=== PATIENT | female | born 1985 | race Caucasian/White ===

== ENCOUNTER 2024-10-04 10:15 | Outpatient (CLI) | payer OTHER, SELFPAY ==
[2024-10-04 18:50] LABS: Basophils # 0.1 K/mm3 (0-0.2); Basophils % 0.6 % (0.1-2.0); Eosinophils # 0.2 Kmm3 (0.0-0.4); Eosinophils % 1.8 % (0.1-12.0); Hematocrit 44.6 % (37.0-47.0); Hemoglobin 14.6 g/dL (12.2-16.2); Immature Granulocytes # 0.02 10^3uL; Immature Granulocytes % 0.2 %; Lymphocytes # 3.8 K/mm3 (0.7-4.5); Lymphocytes % 36.2 % (10-50); Mean Corpuscular HGB Conc 32.7 g/dL (31.8-35.4); Mean Corpuscular Hemoglobin 32.5 pg (27.0-31.2); Mean Corpuscular Volume 99.3 fl (81-99); Mean Platelet Volume 10.5 fl (7.4-10.4); Monocytes # 0.8 K/mm3 (0.1-1.0); Monocytes % 7.6 % (1.7-9.3); Neutrophils # 5.6 K/mm3 (1.8-7.8); Neutrophils % 53.6 % (37.0-80.0); Nucleated Red Blood Cells # 0 10^3/uL; Nucleated Red Blood Cells % 0 %; Platelet Count 247 K/mm3 (142-424); Red Blood Count 4.49 M/mm3 (4.20-5.40); Red Cell Distribution Width 13.2 % (11.5-17.5); Red Cell Distribution Width-SD 47.2 fL; White Blood Count 10.5 K/mm3 (4.8-10.8)
[2024-10-04 19:00] LABS: Hemoglobin A1C 5.4 % (4.0-6.0)
[2024-10-04 19:25] LABS: Erythrocyte Sedimentation Rate 13 mm/hr (0-20)
[2024-10-04 19:48] LABS: Alanine Aminotransferase 26 U/L (12-78); Albumin Level 4.3 g/dl (3.5-5.0); Albumin/Globulin Ratio 1.7 (1.1-1.8); Alkaline Phosphatase 88 U/L (38-126); Anion Gap 12.4 mEq/L (5-15); Aspartate Amino Transferase 20 U/L (14-36); Bilirubin,Total 0.3 mg/dl (0.2-1.3); Blood Urea Nitrogen 17 mg/dl (7-17); Calcium 9.3 mg/dl (8.4-10.2); Carbon Dioxide 24 mmol/L (22.0-30.0); Chloride 108 mmol/L (98-107); Chol/HDL Ratio 5.8 (1-3.5); Cholesterol 174 mg/dl (140-200); Estimated Glomerular Filt Rate 93 ml/min (>60); GFR (African American) 112 ML/MIN (>60); Globulin 2.6 g/dL (1.3-3.2); Glucose 115 mg/dl (74-100); HDL Cholesterol 30 mg/dl (40-60); Potassium 4.4 mmoL/L (3.5-5.1); Sodium 140 mmol/L (136-145); Total Protein,Serum 6.9 g/dl (6.3-8.2); Triglycerides 212 mg/dl (30-150); VLDL Cholesterol 42 mg/dL (0-40)
[2024-10-04 19:59] LABS: C-Reactive Protein 7.5 mg/L (0-4); Direct LDL Cholesterol 116.05 mg/dL (100-129)
[2024-10-04 20:24] LABS: Thyroid Stimulating Hormone 1.43 uIU/mL (0.465-4.68)
[2024-10-04 20:30] LABS: HIV Combo NEGATIVE (Negative)
[2024-10-04 20:37] LABS: Hepatitis C Ab Qual. W/ RFX NEGATIVE (Negative)
[2024-10-06 05:13] LABS: Hepatitis B Surface Antigen Negative (Negative)
== END 2024-10-04 23:59 | disposition home or self-care (01) ==
LOC: LAB.DROPOF 10-05 13:11
PROVIDERS: PCP Family Medicine; Visit Provider Family Medicine
DX: E87.5 Hyperkalemia (principal); M79.7 Fibromyalgia; Z83.3 Family history of diabetes mellitus
CPT/HCPCS: 80053; 80061; 83036; 84443; 85025; 85651; 86140; 86803; 87340; 87389

== ENCOUNTER 2024-11-01 09:32 | Outpatient (CLI) | payer OTHER, SELFPAY ==
[2024-11-01 22:30] LABS: Thyroid Stimulating Hormone 1.00 uIU/mL (0.465-4.68)
[2024-11-01 22:42] LABS: Hemoglobin A1C 6.6 % (4.0-6.0)
[2024-11-03 08:17] LABS: FSH 5.9 mIU/mL (.); Testosterone,Total 127 ng/dL (8-60)
--- OUTSIDE RECORDS SUMMARY | 2024-11-06 09:39 | XMS_ITS | Data Portability ---
Author Organization [facility] Address [address] [place] [address] Assessment No assessment recorded. Plan of Treatment Reminders Order Date Submit Date Provider Last Modified By Organization Details Last Modified Time Details Appointments None recorded. Lab lipid panel, serum 2023 [place] [facility], [address], [place] [address], [place], [address], 4 05:36:42 CMP, serum or plasma 2023 [place] [facility], [address], [place] [address], [place], [address], 4 05:36:41 TSH + free T4, serum 2023 [place] [facility], [address], [place] [address], [place], [address], 4 05:36:40 CBC w/ auto diff 2023 [place] [facility], [address], [place] [address], [place], [address], 4 05:36:40 drug screen, urine 2023 [facility], [address] [place], [address], 4 12:26:50 Referral None recorded. Procedures None recorded. Surgeries None recorded. Imaging US, breast, unilateral 2023 024 [facility], [address] [place], [address], 5 16:12:22 Medication Orders pregabalin 150 mg capsule [address], [address], 5 08:40:28 omeprazole 40 mg capsule,del ayed release [address], [address], 5 09:07:16 pregabalin 150 mg capsule [address], [address], 5 15:01:39 citalopram 10 mg tablet [address], [address], 5 15:01:39 tramadol 50 mg tablet [address], [address], 5 15:01:39 pregabalin 150 mg capsule [address], [address], 4 10:15:51 tramadol 50 mg tablet [address], [address], 4 10:15:51 fenofibrate 160 mg tablet [address], [place], [address], 4 10:26:29 pregabalin 150 mg capsule [address], [place], [address], 4 10:26:32 citalopram 10 mg tablet [address], [place], [address], 4 10:26:30 metoprolol succinate ER 25 mg tablet,exte nded release 24 hr [address], [place], [address], 4 10:26:29 Ubrelvy 100 mg tablet [address], [place], [address], 4 10:26:30 tramadol 50 mg tablet [address], [place], [address], 4 13:42:21 Patient TargetsNo targets recorded. Patient Instructions Encounter Date Encounter Id Patient Instructions Last Modified By Organization Details Last Modified Time 03/10/2024 [id number] body mass index: care instructions Not available 03/16/2024 07:55:10 learning about healthy weight [email or web address] Not available 03/16/2024 07:55:10 08/04/2024 [id number] body mass index: care instructions Not available 08/04/2024 08:40:26 learning about healthy weight Not available 08/04/2024 08:40:26 Patient is due for adult preventative visit and did advise patient to make a follow-up appointment in 3 months for a well visit. Not available 08/04/2024 09:06:21 Reason for Referral None Reported. Results Created Date Observation Date Name Description Value Unit Range Abnormal Flag Note LastModifiedBy Organization Detail LastModifiedTime 03/17/20 24 03/17/2024 drug scree n, urine THC negati ve Not Available [address] [place], [address], 03/17/2024 10:29:46 03/17/20 24 03/17/2024 drug scree n, urine TCA negati ve Not Available [address] [place], [address], 03/17/2024 10:29:46 03/17/20 24 03/17/2024 drug scree n, urine BAR negati ve Not Available [address] [place], [address], 03/17/2024 10:29:46 03/17/20 24 03/17/2024 drug scree n, urine BZO negati ve Not Available [address] [place], [address], 03/17/2024 10:29:46 03/17/20 24 03/17/2024 drug scree n, urine MTD negati ve Not Available [address] [place], [address], 03/17/2024 10:29:46 03/17/20 24 03/17/2024 drug scree n, urine AMP negati ve Not Available [address] [place], [address], 03/17/2024 10:29:46 03/17/20 24 03/17/2024 drug scree n, urine MOP negati ve Not Available [address] [place], [address], 03/17/2024 10:29:46 03/17/20 24 03/17/2024 drug scree n, urine OXY negati ve Not Available [address] [place], [address], 03/17/2024 10:29:46 03/17/20 24 03/17/2024 drug scree n, urine MDMA negati ve Not Available [address] [place], [address], 03/17/2024 10:29:46 03/17/20 24 03/17/2024 drug scree n, urine ASHLIE negati ve Not Available [address] [place], [address], 03/17/2024 10:29:46 03/17/20 24 03/17/2024 drug scree n, urine PCP negati ve Not Available [address] [place], [address], 03/17/2024 10:29:46 03/17/20 24 03/17/2024 drug scree n, urine MET negati ve Not Available [address] [place], [address], 03/17/2024 10:29:46 03/27/20 24 03/28/2024 TSH+F REE T4 TSH 1.690 uIU/m L 0.450- 4.500 normal Not Available [facility] ([facility]) [address] [place], [address], 03/28/2024 05:36:40 03/27/20 24 03/28/2024 TSH+F REE T4 T4,free(dire ct) 1.11 NG/dL 0.82-1 .77 normal Not Available [facility] ([facility]) [address] [place], [address], 03/28/2024 05:36:40 03/27/20 24 03/28/2024 CBC WITH DIFFE RENTI AL/PL ATELE T WBC 10.9 x10e3 /uL 3.4-10 .8 above high normal Eff ectiv e Decem adelfo 2023 [place] [id number] 5 WBC will be made* * non-o rdera ble as a stand -hua e order code. Not Available [facility] ([facility]) [address] [place], [address], 03/28/2024 05:36:40 03/27/20 24 03/28/2024 CBC WITH DIFFE RENTI AL/PL ATELE T RBC 4.75 x10e6 /uL 3.77-5 .28 normal Not Available [facility] ([facility]) [address] [place], [address], 03/28/2024 05:36:40 03/27/20 24 03/28/2024 CBC WITH DIFFE RENTI AL/PL ATELE T hemoglobin 15.6 g/dL 11.1-1 5.9 normal Not Available [facility] ([facility]) [address] [place], [address], 03/28/2024 05:36:40 03/27/20 24 03/28/2024 CBC WITH DIFFE RENTI AL/PL ATELE T hematocrit 46.6 % 34.0-4 6.6 normal Not Available [facility] ([facility]) [address] [place], [address], 03/28/2024 05:36:40 03/27/20 24 03/28/2024 CBC WITH DIFFE RENTI AL/PL ATELE T MCV 98 fL 79-97 above high normal Not Available [facility] ([facility]) [address] [facility], [place], [address], 03/28/2024 05:36:40 03/27/2003/28/2024 CBC WITH DIFFE RENTI AL/PL ATELE T MCH 32.8 pg 26.6-3 3.0 normal Not Available [facility] ([facility]) [address] [place], [address], 03/28/2024 05:36:40 03/27/20 24 03/28/2024 CBC WITH DIFFE RENTI AL/PL ATELE T MCHC 33.5 g/dL 31.5-3 5.7 normal Not Available [facility] ([facility]) [address] [facility], [place], [address], 03/28/2024 05:36:40 03/27/20 24 03/28/2024 CBC WITH DIFFE RENTI AL/PL ATELE T RDW 11.8 % 11.7-1 5.4 Not Available [facility] ([facility]) [address] [place], [address], 03/28/2024 05:36:40 03/27/20 24 03/28/2024 CBC WITH DIFFE RENTI AL/PL ATELE T platelets 238 x10e3 /uL 150-45 0 normal Not Available [facility] ([facility]) [address] [place], [address], 03/28/2024 05:36:40 03/27/20 24 03/28/2024 CBC WITH DIFFE RENTI AL/PL ATELE T neutrophils 55 % not estab. normal Not Available [facility] ([facility]) [address] [place], [address], 03/28/2024 05:36:40 03/27/20 24 03/28/2024 CBC WITH DIFFE RENTI AL/PL ATELE T lymphs 35 % not estab. normal Not Available [facility] ([facility]) [address] [place], [address], 03/28/2024 05:36:40 03/27/20 24 03/28/2024 CBC WITH DIFFE RENTI AL/PL ATELE T monocytes 6 % not estab. normal Not Available [facility] ([facility]) [address] [place], [address], 03/28/2024 05:36:40 03/27/20 24 03/28/2024 CBC WITH DIFFE RENTI AL/PL ATELE T eos 2 % not estab. normal Not Available [facility] ([facility]) [address] [facility], [place], [address], 03/28/2024 05:36:40 03/27/20 24 03/28/2024 CBC WITH DIFFE RENTI AL/PL ATELE T basos 1 % not estab. normal Not Available [facility] ([facility]) [address] [facility], [place], [address], 03/28/2024 05:36:40 03/27/20 24 03/28/2024 CBC WITH DIFFE RENTI AL/PL ATELE T immature cells WRAPPER DIPPER Not Available [facility] ([facility]) [address] [place], [address], 03/28/2024 05:36:40 03/27/20 24 03/28/2024 CBC WITH DIFFE RENTI AL/PL ATELE T neutrophils (absolute) 6.1 x10e3 /uL 1.4-7. 0 normal Not Available [facility] ([facility]) [address] [place], [address], 03/28/2024 05:36:40 03/27/20 24 03/28/2024 CBC WITH DIFFE RENTI AL/PL ATELE T lymphs (absolute) 3.8 x10e3 /uL 0.7-3. 1 above high normal Not Available [facility] ([facility]) [address] [place], [address], 03/28/2024 05:36:40 03/27/20 24 03/28/2024 CBC WITH DIFFE RENTI AL/PL ATELE T monocytes(ab solute) 0.6 x10e3 /uL 0.1-0. 9 normal Not Available [facility] ([facility]) [address] [place], [address], 03/28/2024 05:36:40 03/27/20 24 03/28/2024 CBC WITH DIFFE RENTI AL/PL ATELE T eos (absolute) 0.2 x10e3 /uL 0.0-0. 4 normal Not Available [facility] ([facility]) [address] [place], [address], 03/28/2024 05:36:40 03/27/20 24 03/28/2024 CBC WITH DIFFE RENTI AL/PL ATELE T baso (absolute) 0.1 x10e3 /uL 0.0-0. 2 normal Not Available [facility] ([facility]) [address] [place], [address], 03/28/2024 05:36:40 03/27/20 24 03/28/2024 CBC WITH DIFFE RENTI AL/PL ATELE T immature granulocytes 1 % not estab. Not Available [facility] ([facility]) [address] [place], [address], 03/28/2024 05:36:40 03/27/20 24 03/28/2024 CBC WITH DIFFE RENTI AL/PL ATELE T immature grans (abs) 0.1 x10e3 /uL 0.0-0. 1 Not Available [facility] ([facility]) [address] [place], [address], 03/28/2024 05:36:40 03/27/20 24 03/28/2024 CBC WITH DIFFE RENTI AL/PL ATELE T NRBC WRAPPER DIPPER Not Available [facility] ([facility]) [address], [place], [address], 03/28/2024 05:36:40 03/27/20 24 03/28/2024 CBC WITH DIFFE RENTI AL/PL ATELE T hematology comments: WRAPPER DIPPER Not Available [facility] ([facility]) [address] [facility], [place], [address], 03/28/2024 05:36:40 03/27/20 24 03/28/2024 COMP. METAB OLIC PANEL (14) glucose 88 mg/dL 70-99 normal Not Available [facility] ([facility]) [address] [facility], [place], [address], 03/28/2024 05:36:41 03/27/20 24 03/28/2024 COMP. METAB OLIC PANEL (14) BUN 19 mg/dL 6-20 normal Not Available [facility] ([facility]) [address] [facility], [place], [address], 03/28/2024 05:36:41 03/27/20 24 03/28/2024 COMP. METAB OLIC PANEL (14) creatinine 0.87 mg/dL 0.57-1 .00 normal Not Available [facility] ([facility]) [address] [facility], [place], [address], 03/28/2024 05:36:41 03/27/20 24 03/28/2024 COMP. METAB OLIC PANEL (14) eGFR 87 mL/mi n/1.7 3 >59 normal Not Available [facility] ([facility]) [address] [facility], [place], [address], 03/28/2024 05:36:41 03/27/20 24 03/28/2024 COMP. METAB OLIC PANEL (14) BUN/creatini ne ratio 22 9-23 normal Not Available [facility] ([facility]) [address] [facility] [place], [address], 03/28/2024 05:36:41 03/27/20 24 03/28/2024 COMP. METAB OLIC PANEL (14) sodium 138 mmol/ L 134-14 4 normal Not Available [facility] ([facility]) [address] [facility] [place], [address], 03/28/2024 05:36:41 03/27/20 24 03/28/2024 COMP. METAB OLIC PANEL (14) potassium 4.6 mmol/ L 3.5-5. 2 normal Not Available [facility] ([facility]) [address] [facility], [address], 03/28/2024 05:36:41 03/27/20 24 03/28/2024 COMP. METAB OLIC PANEL (14) chloride 104 mmol/ L 96-106 normal Not Available [facility] ([facility]) [address] [facility], [address], 03/28/2024 05:36:41 03/27/20 24 03/28/2024 COMP. METAB OLIC PANEL (14) carbon dioxide, total 20 mmol/ L 20-29 normal Not Available [facility] ([facility]) [address] [place], [address], 03/28/2024 05:36:41 03/27/20 24 03/28/2024 COMP. METAB OLIC PANEL (14) calcium 9.1 mg/dL 8.7-10 .2 normal Not Available [facility] ([facility]) [address] [place], [address], 03/28/2024 05:36:41 03/27/20 24 03/28/2024 COMP. METAB OLIC PANEL (14) protein, total 7.0 g/dL 6.0-8. 5 normal Not Available [facility] ([facility]) [address] [facility], [address], 03/28/2024 05:36:41 03/27/20 24 03/28/2024 COMP. METAB OLIC PANEL (14) albumin 4.6 g/dL 3.9-4. 9 normal Not Available [facility] ([facility]) [address] [facility] [place], [address], 03/28/2024 05:36:41 03/27/20 24 03/28/2024 COMP. METAB OLIC PANEL (14) globulin, total 2.4 g/dL 1.5-4. 5 Not Available [facility] ([facility]) [address] [facility] [place], [address], 03/28/2024 05:36:41 03/27/20 24 03/28/2024 COMP. METAB OLIC PANEL (14) bilirubin, total 0.2 mg/dL 0.0-1. 2 normal Not Available [facility] ([facility]) [address] [facility] [place], [address], 03/28/2024 05:36:41 03/27/20 24 03/28/2024 COMP. METAB OLIC PANEL (14) alkaline phosphatase 77 IU/L 44-121 normal Not Available [facility] ([facility]) [address] [place], [address], 03/28/2024 05:36:41 03/27/20 24 03/28/2024 COMP. METAB OLIC PANEL (14) AST (SGOT) 11 IU/L 0-40 normal Not Available [facility] ([facility]) [address] [facility] [place], [address], 03/28/2024 05:36:41 03/27/20 24 03/28/2024 COMP. METAB OLIC PANEL (14) ALT (SGPT) 12 IU/L 0-32 normal Not Available [facility] ([facility]) [address] [place], [address], 03/28/2024 05:36:41 03/27/20 24 03/28/2024 LIPID PANEL cholesterol, total 177 mg/dL 100-19 9 normal Not Available [facility] ([facility]) [address] [place], [address], 03/28/2024 05:36:42 03/27/20 24 03/28/2024 LIPID PANEL triglyceride s 134 mg/dL 0-149 normal Not Available [facility] ([facility]) [address] [place], [address], 03/28/2024 05:36:42 03/27/2003/28/2024 LIPID PANEL HDL cholesterol 34 mg/dL >39 below low normal Not Available [facility] ([facility]) [address] [place], [address], 03/28/2024 05:36:42 03/27/20 24 03/28/2024 LIPID PANEL VLDL cholesterol noe 24 mg/dL 5-40 Not Available [facility] ([facility]) [address] [place], [address], 03/28/2024 05:36:42 03/27/20 24 03/28/2024 LIPID PANEL LDL chol calc ([facility] [place]) 119 mg/dL 0-99 above high normal Not Available [facility] ([facility]) [address] [place], [address], 03/28/2024 05:36:42 03/27/20 24 03/28/2024 LIPID PANEL LDL calc comment: WRAPPER DIPPER Not Available [facility] ([facility]) [address] [place], [address], 03/28/2024 05:36:42 08/09/19 25 08/05/2024 MAMMO , diagn ostic , digit al, bilat eral No observ ation record ed. [facility] [address] [place], [address], 08/15/2024 08:18:59 08/09/19 25 08/05/2024 US, ruthy riggs No observ ation record ed. [email or web address] [facility] [address] [facility] [place], [address], 08/11/2024 14:02:05 Result Notes None recorded. Problems Name Problem SNOMED Code Status Onset Date Resolution Date Notes Provider Name and Address Organization Details Recorded Time Hypertriglycer idemia 511224504 Active 2023 Chris Smalls MD [address], [place], [address], [place] - [facility] 4 10:21:42 Migraine with aura 9918579 Active 2023 Chris Smalls MD [address], [place], [address], [place] [facility] 4 10:21:45 Fibromyalgia 966853460 Active 2023 Chris Smalls MD [address], [place], [address], [place] [facility] 4 10:21:46 Generalized anxiety disorder 01536585 Active 2024 Tomer Yang DO [address], [place], [address], [place] [facility] 5 09:00:22 Pain of multiple joints 45263415 Active 2024 Tomer Yang DO [address], [place], [address], [place] [facility] 5 09:00:44 Gastroesophage al reflux disease without esophagitis 049123802 Active 2024 Tomer Yang DO [address], [place], [address], [place] [facility] 5 09:04:58 Problem Notes None recorded. Procedures Surgical History Date Name Laterality Status Provider Name and Address Organization Details Recorded Time Ankle arthroscopy/ surgery completed Mariaelena Last [place] - [facility] 03/10/2024 13:08:40 Imaging Results None recorded. Procedure Notes None recorded. Medical Equipment None Reported. Allergies Allergen ID Allergen Name Allergen Category Reaction Reaction Severity Criticality Documentation Date Start Date Code Code System Note Provider Name and Address Organization Details Recorded Time 386809 Augmentin medicatio n hives moderate Not available 03/10/2024 05907 2 RxNorm Mariaelena Oreilly-Orpedro ivan null, [place] - [facility] 4 13:06:22 Medications Name Sig Start Date Stop Date Status Note LastModified by Organization Details LastModified Time Prescription - Prior Authorization Request active Not Available Not Available Not Available citalopram 10 mg tablet TAKE ONE (1) TABLET EVERY DAY BY ORAL ROUTE AFTER A MEAL active Not Available Not Available No t Available Nystop 100,000 unit/gram topical powder APPLY TO THE AFFECTED AREA(S) BY TOPICAL ROUTE TWO (2) TIMES PER DAY active Not Available Not Available No t Available rizatriptan 10 mg tablet TAKE ONE (1) TABLET BY MOUTH AT ONSET OF MIGRAINE; MAY REPEAT ONCE AFTER AT LEAST TWO (2) HOURS active Not Available Not Available No t Available omeprazole 40 mg capsule,delaye d release TAKE ONE (1) CAPSULE TWICE A DAY BY ORAL ROUTE FOR 90 DAYS. active Not Available Not Available No t Available tramadol 50 mg tablet TAKE ONE (1) TABLET THREE (3) TIMES A DAY BY ORAL ROUTE AFTER MEAL(S) FOR 30 DAYS. active Not Available Not Available No t Available metoprolol succinate ER 25 mg tablet,extende d release 24 hr TAKE 1 TABLET BY MOUTH EVERY DAY AFTER A MEAL active Not Available Not Available No t Available fenofibrate 160 mg tablet TAKE ONE (1) TABLET EVERY DAY BY ORAL ROUTE FOR 90 DAYS. active Not Available Not Available No t Available pregabalin 150 mg capsule TAKE ONE (1) CAPSULE TWICE A DAY BY ORAL ROUTE AFTER MEAL(S) FOR 30 DAYS. active Not Available Not Available No t Available Ubrelvy 100 mg tablet active Not Available Not Available Not Available Qulipta 60 mg tablet active Not Available Not Available Not Available Vitals Date Recorded Body weight Heart rate Oxygen saturation Oxygen saturation in Arterial blood by Pulse oximetry Respiratory rate Systolic And Diastolic Provider Name and Address Organization Details Last Updated DateTime 5 295942. 72 g 71 /min 98 % 98 % 18 /min 128/80 mm[Hg] Jaclyn Warren [place] - [facility] 5 14:37:22 Date Recorded Body height Body mass index (BMI) Body weight Body temperature Heart rate Oxygen saturation Oxygen saturation in Arterial blood by Pulse oximetry Respiratory rate Systolic And Diastolic Provider Name and Address Organization Details Last Updated DateTime 5 156.21 cm 46.8 kg/m2 674295. 48 g 98 [degF] 88 /min 97 % 97 % 18 /min 118/74 mm[Hg] Radha Tolentino [place] - [facility] 5 08:06:53 Date Recorded Body weight Body mass index (BMI) Body height Heart rate Oxygen saturation Oxygen saturation in Arterial blood by Pulse oximetry Body temperature Respiratory rate Systolic And Diastolic Provider Name and Address Organization Details Last Updated DateTime 4 497896. 13 g 45.5 kg/m2 156.21 cm 96 /min 98 % 98 % 98.4 [degF] 18 /min 118/80 mm[Hg] Mariaelena ivan [place] - [facility] 4 13:05:52 Date Recorded Body height Body mass index (BMI) Body weight Heart rate Body temperature Oxygen saturation Oxygen saturation in Arterial blood by Pulse oximetry Respiratory rate Systolic And Diastolic Provider Name and Address Organization Details Last Updated DateTime 4 156.21 cm 45.9 kg/m2 602215. 32 g 85 /min 98.2 [degF] 98 % 98 % 18 /min 110/72 mm[Hg] Mariaelena ivan [place] - [facility] 4 09:50:22 Date Recorded Body height Body mass index (BMI) Body weight Heart rate Body temperature Oxygen saturation Oxygen saturation in Arterial blood by Pulse oximetry Respiratory rate Systolic And Diastolic Provider Name and Address Organization Details Last Updated DateTime 4 156.21 cm 46.3 kg/m2 884441. 5 g 92 /min 98.4 [degF] 98 % 98 % 18 /min 112/78 mm[Hg] Mariaelena Madden [facility] - [facility] 4 09:44:16 Social History Question Answer Notes LastModified by Organizat ion Details LastModified Time Tobacco Smoking Status Current Every Day Smoker [facility] [place] [facility] 03/10/2024 13:07:35 What Is Your Level Of Caffeine Consumption? Moderate Information not available 03/10/2024 What Was The Date Of Your Most Recent Tobacco Screening? 08/04/2024 Information not available 08/04/2024 What Is Your Current Pack Years? 10-19packyear s [email or web address] Information not available 08/04/2024 What Is Your Relationship Status? Information not available 03/10/2024 At What Age Did You Start Smoking Tobacco? 18 [email or web address] Information not available 08/04/2024 How Much Tobacco Do You Smoke? 0.5 PPD Information not available 03/10/2024 Has Tobacco Cessation Counseling Been Provided? Yes Information not available 03/10/2024 On What Date Was Tobacco Cessation Counseling Provided? 08/04/2024 [email or web address] Information not available 08/04/2024 How Many Years Have You Smoked Tobacco? 21 [email or web address] Information not available 08/04/2024 Do You Have Any Future Plans To Get ? No, I Don't Want To Become Information not available 03/10/2024 Sex: Female Functional Status Question Answer Note LastModified by Organizat ion Details LastModified Time Do you use any illicit or recreational drugs? No Information not available 03/10/2024 Do you or have you ever used any other forms of tobacco or nicotine? No Information not available 03/10/2024 What is your level of alcohol consumption? None [email or web address] Information not available 08/04/2024 What is your status? Not Information no t available 03/10/2024 Mental Status None recorded. Family History Relationship Description Onset Age of this Age Resolved Age Notes LastModified by Organization Details LastModified Time Father No current problems or disability [email or web address] Not available 05/16 14:29:06 Mother No current problems or disability [email or web address] Not available 05/16 14:29:06 Medical History Condition Response Migraine Headaches Y Fibromyalgia Y Hypertriglyceridemia Y Gynecological History Statement/Question Response Menses Monthly N Obstetrics History GPAL:G 0 P 0 0 0 0 Past Encounters Encounter ID Performer Location Encounter Start Date Encounter Closed Date Diagnosis/Indication Diagnosis SNOMED-CT Code Diagnosis ICD10 Code Diagnosis Note [id number] Chris Smalls MD [address] [place] [address] 03/10/2024 12:39:12 03/10/2024 13:45:51 Pain of multiple joints 35150467 M25.50 Body mass index 40+ - severely obese 449668313 Z68.42 Morbid obesity 424852404 E66.01 [id number] Chris Smalls MD [address] [place] [address] 03/17/2024 09:29:50 03/17/2024 10:33:04 Hypertriglyceridemia 643234308 E78.1 Migraine with aura 16343 06 G43.109 Fibromyalgia 481072065 M 79.7 Generalize d anxiety disorder [id number] F41.1 Long-term drug therapy [id number] Z79.950 [id number] Chris Smalls MD [address] [place] [address] 04/14/2024 09:37:00 04/14/2024 10:17:29 Fibromyalgia [id number] M79.7 Pain of mu ltiple joints 40405636 M25.50 Mass of right breast 384 [id number] N63.10 [id number] Chris Smalls MD [address] [place] [address] 05/16/2024 14:15:54 05/16/2024 15:03:49 Fibromyalgia 199923672 M79.7 Hypertriglyceridemia 302 285704 E78.1 Migraine with aura 39143 06 G43.109 Pain of mu ltiple joints 29982106 M25.50 Generalize d anxiety disorder 11039504 F41.1 [id number] Tomer Yang DO [address] [place] [address] 08/04/2024 07:57:35 08/04/2024 08:45:25 Fibromyalgia 656990468 M79.7 Fibromyalg ia. Patient has had a failure of amitriptyl ine, allergic to gabapentin , and a failure of Cymbalta per her records. Patient will need to sign a records request for workup from her neurologis t for ongoing assessment . Patient will be given a renewal of her Lyrica at this point until we can validate her other failures. Hypertriglyceridemia 302 844256 E78.1 Hypertrigl yceridemia . Patient will continue the fenofibrat e at this point and at follow-up appointmen t will repeat labs. Last triglyceri rosibel were good so a trial off the medication may be indicated to see if her triglyceri rosibel return to greater than 500. Migraine with aura 54181 06 G43.109 Migraine headaches. Uncontroll ed. Patient will continue the metoprolol ER as written and the rizatripta n as needed. Due to frequency of headaches, greater than 4/month, patient will be trialed on Qulipta to see if that helps with her headaches. Patient has had a failure of sumatripta n hand, Botox injections , and topiramate . Body mass index 40+ - severely obese [id number] E66.01 bmi--46.7 Morbid obesity 561042690 E66.01 Generalize d anxiety disorder 61212245 F41.1 Generalize d anxiety disorder. Controlled . Patient will continue the citalopram as currently prescribed . Pain of mu ltiple joints 63841910 M25.50 Joint pain. Patient was advised that tramadol will not be renewed. Patient was agreeable to not renewing the medication . Gastroesop hageal reflux disease without esophagitis 113726516 K21.9 Gastroesop hageal reflux disease without esophagiti s. Controlled . Patient will continue the omeprazole twice daily. Did advise patient to take once prior to breakfast and once prior to dinner about 30 minutes prior to those meals. Patient will need magnesium level at follow-up appointmen t. Health Concerns Section Related Observation LastModified by Organization Detai ls LastModified Time None Recorded Concern Status LastModified by Organization Details LastModified Time None Recorded Advance Directives Directive None Recorded Payers Insurance Date Sequence Insurance Name Policy Number Policy Dum[place] Covered Member ID Dumont Member ID Guarantor Name 04/13/2024 1 [employer] Fernando Uriarte [id number] Jolynn Uriarte 04/13/2024 1 [employer] [id number] Fernando Uriarte [id number] Jolynn Uriarte 04/13/2024 2 [facility] [employer] [facility] Fernando Uriarte [id number] Jolynn Uriarte Notes Date Note Type Note Provider Name and Address Organization Details Recorded Time 03/10/2024 text/html Pt presents as a new patient with no forms completed, no prior records. Pt states her main concerning today is chronic, polyarticular pain related to likely OA. Pt describes polyarticular pain as dull and grinding, without radiation, constant with a waxing and waning course, worst in low back and knees, associated swelling with knees, relieved by rest, NSAIDs, warmth. Denies recent imaging.Pt's BMI today is 45.5. Extensive discussion with Pt about the effects of weight on overall health, ana laura joint pain. Discussed basic nutrition facts, meal planning and how to design a graduated exercise plan to accommodate joint pain. Pt understanding and agreeable. Chris Smalls MD [address], [place], [address], [place] - [facility] 03/16/2024 07:55:25 03/17/2024 text/html Pt presents with prior records still not arrived but does bring prior meds.Pt with hx of CLBP and fibromyalgia. Pt s chronic low back currently stable with good control using current regimen. Pt reminded on good lifting technique, use of back brace and work/rest intervals.Pt describes polyarticular pain as dull and grinding, without radiation, constant with a waxing and waning course, worst in low back and knees, associated swelling with knees, relieved by rest, NSAIDs, warmth. Denies recent imaging. Fibromyalgia-Pt states no recent flares, does endorse sharp pain at paraspinal trigger points. Not actively treated at this time.Pt states long hx of migraine HAs. Have been well controlled with tryptans in the past, did not respond well to Fioricet. Metoprolol for daily control, will supply sample of Ubrelvy for arbortificient.Pt with hx of depression/anxiety; denies any significant mood changes. No worsening depression, spikes of anxiety, denies sleep/appetite/GI alterations, Stable with current regimen. Not currently following with counseling.Pt states hx of pure HTG, treated with fenofibrate 160mg.5 minutes in chart review, 25 minutes in face to face time with Pt. Chris Smalls MD [address], [place], [address], [facility] - [facility] 03/17/2024 17:07:52 04/14/2024 text/html Pt presents for f/u for breast mass, CLBP and fibromyalgia.Pt states noticed tender, mobile mass in upper left quadrant of right breast the day prior. She has had a mammogram done about 5 years prior for dense breasts . Pt denies any breast cancer hx in her family. She is not currently menstruating. She denies prior history of similar lesions.Pt with hx of CLBP and fibromyalgia. Pt s chronic low back currently stable with good control using current regimen. Pt reminded on good lifting technique, use of back brace and work/rest intervals.Pt describes polyarticular pain as dull and grinding, without radiation, constant with a waxing and waning course, worst in low back and knees, associated swelling with knees, relieved by rest, NSAIDs, warmth. Denies recent imaging. Fibromyalgia-Pt states no recent flares, does endorse sharp pain at paraspinal trigger points. Not actively treated at this time.5 minutes in chart review, 25 minutes in face to face time with Pt. Chris Smalls MD [address], [place], [address], [facility] - [facility] 04/14/2024 14:47:22 08/04/2024 text/html 39-year-old estephania le seen in the office today for follow-up of chronic conditions.Patient continues on Lyrica for treatment of fibromyalgia. Patient states that she began in 2005 with pain to her spine. Patient was then referred to orthopedics for ongoing workup. Patient was started in physical therapy by the orthopedic surgeon and states that her symptoms did not resolve. Patient was then referred to a neurologist who did further workup for the patient and diagnosed her with fibromyalgia at that point. Patient states that she tried amitriptyline without improvement, gabapentin which she states she is allergic to, and duloxetine which she says did not do anything for her. Patient was then started on Lyrica and states that her symptoms have been well-controlled on the current dose. Patient states that she has been on Lyrica since approximately 2006 or 2007 with good control of her pain.Patient continues on fenofibrate for treatment of hypertriglyceridemi a. Patient states she has no side effects of the medication. Patient also denies any history of pancreatitis.Presley jackson continues to struggle with her migraine headaches. Patient states she has a headache most days. Patient does feel like the frequency of her headaches has decreased since starting the metoprolol and states that the rizatriptan does help her when she has a full-blown headache. Patient was trialed on Ubrelvy and at that point he has she has not noticed any improvement in her symptoms. Patient states in the past she has tried Botox injections which were not helpful and states she is also had a failure of sumatriptan hand. Patient is wondering if any additional treatment is warranted.Patient remains on citalopram for treatment of generalized anxiety disorder. Patient states that she still has symptoms but her symptoms are lessened at this point. Patient does deny suicidal homicidal ideation. Patient states that she would like to stay on her current dose.Patient continues to struggle with acid reflux disorder. Patient states that she is currently taking Prilosec yefw-lct-offmgjw and taking 80 mg daily for relief of her symptoms. Patient is also currently taking it at bedtime. Tomer Yang DO [address], [place], [address], [place] - [facility] 08/04/2024 09:07:17 OBGyn Episode No OBEpisode recorded.
--- OUTSIDE RECORDS SUMMARY | 2024-11-06 09:39 | XMS_ITS | Clinical Summary ---
Author Organization [facility] Address [address] [place] [address] Phone Care Team Providers Care Recovery Analyst Name Role Phone Unavailable Primary Care Provider Unavailabl e Allergies No known active allergies Social History Tobacco Use Types Packs/Day Years Used Date Smoking Tobacco: Never Assessed Comments No Sex and Gender Information Value Date Recorded Sex Assigned at Not on file Legal Sex Female 2:27 PM EST Gender Identity Not on file Sexual Orientation Not on file Obstetrics History Para Term AB IAB SAB Ectopic Multiple Livin g Live Births 0 Last Filed Vital Signs Vital Sign Reading Time Taken Comments Blood Pressure - - Pulse - - Temperature - - Respiratory Rate - - Oxygen Saturation - - Inhaled Oxygen Concentration - - Weight 113.4 kg (250 lb) 08/05/2024 10:14 AM EDT Height 158.8 cm (5' 2.5 ) 08/05/2024 10:14 AM ED T Body Mass Index 45 08/05/2024 10:14 AM EDT Plan of Treatment Health Maintenance Due Date Last Done Comments Annual Wellness Exam 1987 DTaP/TDaP/Td (1 - Tdap) 2003 Hepatitis B Vaccine (1 of 3 - 19+ 3-dose series) 2003 Cervical Cancer Screening 2005 Pap Smear 2005 HPV/Pap Cotest 2014 COVID-19 Vaccine ( - 2023-2 5 season) 2024 Influenza Vaccine (#1) 2025 Breast Cancer Screening 08/05/2026 08/05/2024 Meningococcal B Vaccine Aged Out No l onger eligible based on patient's age to complete this topic Pneumococcal Vaccine 0-49 Aged Out No longer eligible based on patient's age to complete this topic Procedures Procedure Name Priority Date/Time Associated Diagnosis Comments MM MAMMO DIGITAL SHYLA DIAGN BILAT Routine 08/05/2024 10:23 AM EDT Mass of right breast, unspecified quadrant from Last 3 Months or Most Recently Relevant to Health Maintenance Results * (ABNORMAL) MM MAMMO DIGITAL SHYLA DIAGN BILAT (08/05/2024 10:23 AM EDT) Anatomical Region Laterality Modality Breast Bilateral Mammography 08/05/2024 10:2 3 AM EDT Impressions 08/05/2024 10:44 AM EDT Incomplete: Need additional imaging evaluation ([id number]) ASSESSMENT TEXT: Boil cyst is likely what accounts for patient's palpable abnormality. Recommend ultrasound evaluation for complete characterization of the palpable region RECOMMENDATION: Additional Imaging Breast Ultrasound Right . . COMMENTS: DISCLAIMER *The patient was notified by MyChart or mail of the results for this examination. *The patient's information was entered into a reminder system with a target due date for the next breast imaging, in accordance with the [employer] and the Society of Breast Imaging recommendations. *Breast Imaging has a false negative rate of 15%. *Any patient with a palpable abnormality, unexplained by breast imaging, should be managed on a clinical basis by the attending physician. Narrative 08/05/2024 10:44 AM EDT EXAM: MM MAMMO DIGITAL SHYLA DIAGN BILAT EXAM DATE: 08/05/2024 10:23 AM INDICATION: N63.10-Unspecified lump in the right breast, unspecified [id number] COMPARISON STUDIES: Compared with prior studies the most recent being No Qualifying Comparisons Found TISSUE DENSITY: The breasts are almost entirely fatty. FINDINGS: Left breast is unremarkable. Corresponding to palpable abnormality is a oval-shaped mass which is fat density centrally with thin rim of calcification consistent with an oil cyst. Procedure Note Denise Mendoza MD - 08/05/2024 EXAM: MM MAMMO DIGITAL SHYLA DIAGN BILAT EXAM DATE: 08/05/2024 10:23 AM INDICATION: N63.10-Unspecified lump in the right breast, unspecified [id number] COMPARISON STUDIES: Compared with prior studies the most recent being No Qualifying Comparisons Found TISSUE DENSITY: The breasts are almost entirely fatty. FINDINGS: Left breast is unremarkable. Corresponding to palpableabnormality is a oval-shaped mass which is fat density centrally with thin rim ofcalcification consistent with an oil cyst. IMPRESSION: Incomplete: Need additional imaging evaluation ([id number]) ASSESSMENT TEXT: Boil cyst is likely what accounts for patient'spalpable abnormality. Recommend ultrasound evaluation for complete characterizationof the palpable region RECOMMENDATION: Additional Imaging Breast Ultrasound Right . . COMMENTS: DISCLAIMER *The patient was notified by MyChart or mail of the results for this examination. *The patient's information was entered into a reminder system with atarget due date for the next breast imaging, in accordance with the [employer] and the Society of Breast Imaging recommendations. *Breast Imaging has a false negative rate of 15%. *Any patient with a palpable abnormality, unexplained by breast imaging,should be managed on a clinical basis by the attending physician. us Chris Smalls MD IMG MAMMOGRAPHY ORDERABLES Final Result from Last 3 Months or Most Recently Relevant to Health Maintenance Insurance
== END 2024-11-01 23:59 | disposition home or self-care (01) ==
LOC: LAB.DROPOF 11-06 09:33
PROVIDERS: PCP Family Medicine; Visit Provider Obstetrics & Gynecology
DX: E28.2 Polycystic ovarian syndrome (principal); E66.9 Obesity, unspecified; E78.5 Hyperlipidemia, unspecified; E28.39 Other primary ovarian failure; L68.0 Hirsutism; Z72.0 Tobacco use; Z83.3 Family history of diabetes mellitus
CPT/HCPCS: 82627; 82670; 83001; 83036; 83498; 84146; 84403; 84443

== ENCOUNTER 2024-11-15 09:27 | Outpatient (CLI) | payer OTHER, SELFPAY ==
--- OUTSIDE RECORDS SUMMARY | 2024-11-15 09:31 | XMS_ITS | Clinical Summary ---
Author Organization [facility] Address [address] [place] [address] Phone Care Team Providers Care Certified Medical Asst Name Role Phone Unavailable Primary Care Provider [...] AM EDT Incomplete: Need additional imaging evaluation ([id number]) ASSESSMENT TEXT: Boil cyst is likely what [...] next breast imaging, in accordance with the [employer] and the Society of [...] N63.10-Unspecified lump in the right breast, unspecified [id number] COMPARISON STUDIES: Compared with prior studies the [...] N63.10-Unspecified lump in the right breast, unspecified [id number] COMPARISON STUDIES: Compared with prior studies the most recent being No Qualifying Comparisons Found TISSUE DENSITY: The breasts are almost entirely fatty. FINDINGS: Left breast is unremarkable. Corresponding to palpableabnormality is a oval-shaped mass which is fat density centrally with thin rim ofcalcification consistent with an oil cyst. IMPRESSION: Incomplete: Need additional imaging evaluation ([id number]) ASSESSMENT TEXT: Boil cyst is likely what [...] next breast imaging, in accordance with the [employer] and the Society of Breast [...]
--- OUTSIDE RECORDS SUMMARY | 2024-11-15 09:31 | XMS_ITS | Data Portability ---
Author Organization [facility] Address [address] [place] [address] Assessment No assessment recorded. Plan of Treatment Reminders Order Date Submit Date Provider Last Modified By Organization Details Last Modified Time Details Appointments None recorded. Lab lipid panel, serum 2023 [place] [facility], [address], [place], [place], [address], 4 05:36:42 CMP, serum or plasma 2023 [place] [facility], [address], [place] F, [place], [address], 4 05:36:41 TSH + free T4, serum 2023 [place] [facility], [address], [place], [place], [address], 4 05:36:40 CBC w/ auto diff 2023 [place] [facility], [address], [place], [place], [address], 4 05:36:40 drug screen, urine 2023 [facility], [address] [place], [address], 4 12:26:50 Referral None recorded. Procedures None recorded. Surgeries None recorded. Imaging US, breast, unilateral 2023 024 [facility], [address] [place], [address], 5 16:12:22 Medication Orders pregabalin 150 mg capsule [address], [address], 5 08:40:28 omeprazole 40 mg capsule,del ayed release [address], [address], 5 09:07:16 pregabalin 150 mg capsule [address], [address], 5 15:01:39 citalopram 10 mg tablet [address], [address], 5 15:01:39 tramadol 50 mg tablet [address], [address], 5 15:01:39 pregabalin 150 mg capsule [address], [address], 4 10:15:51 tramadol 50 mg tablet [address], [address], 4 10:15:51 fenofibrate 160 mg tablet [address], [place], [address], 4 10:26:29 pregabalin 150 mg capsule [address], [place], [address], 4 10:26:32 citalopram 10 mg tablet [address], [place], [address], 4 10:26:30 metoprolol succinate ER 25 mg tablet,exte nded release 24 hr [address], [place], [address], 4 10:26:29 Ubrelvy 100 mg tablet [address], [place], [address], 4 10:26:30 tramadol 50 mg tablet [address], [place], [address], 4 13:42:21 Patient TargetsNo targets recorded. Patient Instructions Encounter Date Encounter Id Patient Instructions Last Modified By Organization Details Last Modified Time 03/10/2024 [id number] body mass index: care instructions [email or web address] Not available 03/16/2024 07:55:10 learning about healthy weight [email or web address] Not available 03/16/2024 07:55:10 08/04/2024 [id number] body mass index: care instructions Not available [...] n, urine THC negati ve Not Available [address] [place], [address], 03/17/2024 10:29:46 03/17/20 24 03/17/2024 drug scree n, urine TCA negati ve Not Available [address] [place], [address], 03/17/2024 10:29:46 03/17/20 24 03/17/2024 drug scree n, urine BAR negati ve Not Available [address] [place], [address], 03/17/2024 10:29:46 03/17/20 24 03/17/2024 drug scree n, urine BZO negati ve Not Available [address] [place], [address], 03/17/2024 10:29:46 03/17/20 24 03/17/2024 drug scree n, urine MTD negati ve Not Available [address] [place], [address], 03/17/2024 10:29:46 03/17/20 24 03/17/2024 drug scree n, urine AMP negati ve Not Available [address] [place], [address], 03/17/2024 10:29:46 03/17/20 24 03/17/2024 drug scree n, urine MOP negati ve Not Available [address] [place], [address], 03/17/2024 10:29:46 03/17/20 24 03/17/2024 drug scree n, urine OXY negati ve Not Available [address] [place], [address], 03/17/2024 10:29:46 03/17/20 24 03/17/2024 drug scree n, urine MDMA negati ve Not Available [address] [place], [address], 03/17/2024 10:29:46 03/17/20 24 03/17/2024 drug scree n, urine ASHLIE negati ve Not Available [address] [place], [address], 03/17/2024 10:29:46 03/17/20 24 03/17/2024 drug scree n, urine PCP negati ve Not Available [address] [place], [address], 03/17/2024 10:29:46 03/17/20 24 03/17/2024 drug scree n, urine MET negati ve Not Available [address] [place], [address], 03/17/2024 10:29:46 03/27/20 24 03/28/2024 TSH+F REE T4 TSH 1.690 uIU/m L 0.450- 4.500 normal Not Available [facility] ([facility]) [address] [place], [address], 03/28/2024 05:36:40 03/27/20 24 03/28/2024 TSH+F REE T4 T4,free(dire ct) 1.11 NG/dL 0.82-1 .77 normal Not Available [facility] ([facility]) [address] [place], [address], 03/28/2024 05:36:40 03/27/20 24 03/28/2024 CBC WITH DIFFE RENTI AL/PL ATELE T WBC 10.9 x10e3 /uL 3.4-10 .8 above high normal Eff ectiv e Decem adelfo 2023 [place] [id number] 5 WBC will be made* * non-o rdera ble as a stand -hua e order code. Not Available [facility] ([facility]) [address] [place], [address], 03/28/2024 05:36:40 03/27/20 24 03/28/2024 CBC WITH DIFFE RENTI AL/PL ATELE T RBC 4.75 x10e6 /uL 3.77-5 .28 normal Not Available [facility] ([facility]) [address] [place], [address], 03/28/2024 05:36:40 03/27/20 24 03/28/2024 CBC WITH DIFFE RENTI AL/PL ATELE T hemoglobin 15.6 g/dL 11.1-1 5.9 normal Not Available [facility] ([facility]) [address] [place], [address], 03/28/2024 05:36:40 03/27/20 24 03/28/2024 CBC WITH DIFFE RENTI AL/PL ATELE T hematocrit 46.6 % 34.0-4 6.6 normal Not Available [facility] ([facility]) [address] [place], [address], 03/28/2024 05:36:40 03/27/20 24 03/28/2024 CBC WITH DIFFE RENTI AL/PL ATELE T MCV 98 fL 79-97 above high normal Not Available [facility] ([facility]) [address] [facility], [place], [address], 03/28/2024 05:36:40 03/27/2003/28/2024 CBC WITH DIFFE RENTI AL/PL ATELE T MCH 32.8 pg 26.6-3 3.0 normal Not Available [facility] ([facility]) [address] [place], [address], 03/28/2024 05:36:40 03/27/20 24 03/28/2024 CBC WITH DIFFE RENTI AL/PL ATELE T MCHC 33.5 g/dL 31.5-3 5.7 normal Not Available [facility] ([facility]) [address] [facility], [place], [address], 03/28/2024 05:36:40 03/27/20 24 03/28/2024 CBC WITH DIFFE RENTI AL/PL ATELE T RDW 11.8 % 11.7-1 5.4 Not Available [facility] ([facility]) [address] [place], [address], 03/28/2024 05:36:40 03/27/20 24 03/28/2024 CBC WITH DIFFE RENTI AL/PL ATELE T platelets 238 x10e3 /uL 150-45 0 normal Not Available [facility] ([facility]) [address] [place], [address], 03/28/2024 05:36:40 03/27/20 24 03/28/2024 CBC WITH DIFFE RENTI AL/PL ATELE T neutrophils 55 % not estab. normal Not Available [facility] ([facility]) [address] [place], [address], 03/28/2024 05:36:40 03/27/20 24 03/28/2024 CBC WITH DIFFE RENTI AL/PL ATELE T lymphs 35 % not estab. normal Not Available [facility] ([facility]) [address] [place], [address], 03/28/2024 05:36:40 03/27/20 24 03/28/2024 CBC WITH DIFFE RENTI AL/PL ATELE T monocytes 6 % not estab. normal Not Available [facility] ([facility]) [address] [place], [address], 03/28/2024 05:36:40 03/27/20 24 03/28/2024 CBC WITH DIFFE RENTI AL/PL ATELE T eos 2 % not estab. normal Not Available [facility] ([facility]) [address] [facility], [place], [address], 03/28/2024 05:36:40 03/27/20 24 03/28/2024 CBC WITH DIFFE RENTI AL/PL ATELE T basos 1 % not estab. normal Not Available [facility] ([facility]) [address] [facility], [place], [address], 03/28/2024 05:36:40 03/27/20 24 03/28/2024 CBC WITH DIFFE RENTI AL/PL ATELE T immature cells TIPPLE ENGINEER Not Available [facility] ([facility]) [address] [place], [address], 03/28/2024 05:36:40 03/27/20 24 03/28/2024 CBC WITH DIFFE RENTI AL/PL ATELE T neutrophils (absolute) 6.1 x10e3 /uL 1.4-7. 0 normal Not Available [facility] ([facility]) [address] [place], [address], 03/28/2024 05:36:40 03/27/20 24 03/28/2024 CBC WITH DIFFE RENTI AL/PL ATELE T lymphs (absolute) 3.8 x10e3 /uL 0.7-3. 1 above high normal Not Available [facility] ([facility]) [address] [place], [address], 03/28/2024 05:36:40 03/27/20 24 03/28/2024 CBC WITH DIFFE RENTI AL/PL ATELE T monocytes(ab solute) 0.6 x10e3 /uL 0.1-0. 9 normal Not Available [facility] ([facility]) [address] [place], [address], 03/28/2024 05:36:40 03/27/20 24 03/28/2024 CBC WITH DIFFE RENTI AL/PL ATELE T eos (absolute) 0.2 x10e3 /uL 0.0-0. 4 normal Not Available [facility] ([facility]) [address] [place], [address], 03/28/2024 05:36:40 03/27/20 24 03/28/2024 CBC WITH DIFFE RENTI AL/PL ATELE T baso (absolute) 0.1 x10e3 /uL 0.0-0. 2 normal Not Available [facility] ([facility]) [address] [place], [address], 03/28/2024 05:36:40 03/27/20 24 03/28/2024 CBC WITH DIFFE RENTI AL/PL ATELE T immature granulocytes 1 % not estab. Not Available [facility] ([facility]) [address] [place], [address], 03/28/2024 05:36:40 03/27/20 24 03/28/2024 CBC WITH DIFFE RENTI AL/PL ATELE T immature grans (abs) 0.1 x10e3 /uL 0.0-0. 1 Not Available [facility] ([facility]) [address] [place], [address], 03/28/2024 05:36:40 03/27/20 24 03/28/2024 CBC WITH DIFFE RENTI AL/PL ATELE T NRBC TIPPLE ENGINEER Not Available [facility] ([facility]) [address], [place], [address], 03/28/2024 05:36:40 03/27/20 24 03/28/2024 CBC WITH DIFFE RENTI AL/PL ATELE T hematology comments: TIPPLE ENGINEER Not Available [facility] ([facility]) [address] [facility], [place], [address], 03/28/2024 05:36:40 03/27/20 24 03/28/2024 COMP. METAB OLIC PANEL (14) glucose 88 mg/dL 70-99 normal Not Available [facility] ([facility]) [address] [facility], [place], [address], 03/28/2024 05:36:41 03/27/20 24 03/28/2024 COMP. METAB OLIC PANEL (14) BUN 19 mg/dL 6-20 normal Not Available [facility] ([facility]) [address] [facility], [place], [address], 03/28/2024 05:36:41 03/27/20 24 03/28/2024 COMP. METAB OLIC PANEL (14) creatinine 0.87 mg/dL 0.57-1 .00 normal Not Available [facility] ([facility]) [address] [facility], [place], [address], 03/28/2024 05:36:41 03/27/20 24 03/28/2024 COMP. METAB OLIC PANEL (14) eGFR 87 mL/mi n/1.7 3 >59 normal Not Available [facility] ([facility]) [address] [facility], [place], [address], 03/28/2024 05:36:41 03/27/20 24 03/28/2024 COMP. METAB OLIC PANEL (14) BUN/creatini ne ratio 22 9-23 normal Not Available [facility] ([facility]) [address] [facility] [place], [address], 03/28/2024 05:36:41 03/27/20 24 03/28/2024 COMP. METAB OLIC PANEL (14) sodium 138 mmol/ L 134-14 4 normal Not Available [facility] ([facility]) [address] [facility] [place], [address], 03/28/2024 05:36:41 03/27/20 24 03/28/2024 COMP. METAB OLIC PANEL (14) potassium 4.6 mmol/ L 3.5-5. 2 normal Not Available [facility] ([facility]) [address] [facility] [place], [address], 03/28/2024 05:36:41 03/27/20 24 03/28/2024 COMP. METAB OLIC PANEL (14) chloride 104 mmol/ L 96-106 normal Not Available [facility] ([facility]) [address] [facility] [place], [address], 03/28/2024 05:36:41 03/27/20 24 03/28/2024 COMP. METAB OLIC PANEL (14) carbon dioxide, total 20 mmol/ L 20-29 normal Not Available [facility] ([facility]) [address] [place], [address], 03/28/2024 05:36:41 03/27/20 24 03/28/2024 COMP. METAB OLIC PANEL (14) calcium 9.1 mg/dL 8.7-10 .2 normal Not Available [facility] ([facility]) [address] [place], [address], 03/28/2024 05:36:41 03/27/20 24 03/28/2024 COMP. METAB OLIC PANEL (14) protein, total 7.0 g/dL 6.0-8. 5 normal Not Available [facility] ([facility]) [address] [facility] [place], [address], 03/28/2024 05:36:41 03/27/20 24 03/28/2024 COMP. METAB OLIC PANEL (14) albumin 4.6 g/dL 3.9-4. 9 normal Not Available [facility] ([facility]) [address] [facility] [place], [address], 03/28/2024 05:36:41 03/27/20 24 03/28/2024 COMP. METAB OLIC PANEL (14) globulin, total 2.4 g/dL 1.5-4. 5 Not Available [facility] ([facility]) [address] [facility] [place], [address], 03/28/2024 05:36:41 03/27/20 24 03/28/2024 COMP. METAB OLIC PANEL (14) bilirubin, total 0.2 mg/dL 0.0-1. 2 normal Not Available [facility] ([facility]) [address] [facility] [place], [address], 03/28/2024 05:36:41 03/27/20 24 03/28/2024 COMP. METAB OLIC PANEL (14) alkaline phosphatase 77 IU/L 44-121 normal Not Available [facility]) [address] [place], [address], 03/28/2024 05:36:41 03/27/20 24 03/28/2024 COMP. METAB OLIC PANEL (14) AST (SGOT) 11 IU/L 0-40 normal Not Available [facility] ([facility]) [address] [facility] [place], [address], 03/28/2024 05:36:41 03/27/20 24 03/28/2024 COMP. METAB OLIC PANEL (14) ALT (SGPT) 12 IU/L 0-32 normal Not Available [facility] ([facility]) [address] [place], [address], 03/28/2024 05:36:41 03/27/20 24 03/28/2024 LIPID PANEL cholesterol, total 177 mg/dL 100-19 9 normal Not Available [facility] ([facility]) [address] [place], [address], 03/28/2024 05:36:42 03/27/20 24 03/28/2024 LIPID PANEL triglyceride s 134 mg/dL 0-149 normal Not Available [facility] ([facility]) [address] [place], [address], 03/28/2024 05:36:42 03/27/2003/28/2024 LIPID PANEL HDL cholesterol 34 mg/dL >39 below low normal Not Available [facility] ([facility]) [address] [place], [address], 03/28/2024 05:36:42 03/27/20 24 03/28/2024 LIPID PANEL VLDL cholesterol noe 24 mg/dL 5-40 Not Available [facility] ([facility]) [address] [place], [address], 03/28/2024 05:36:42 03/27/20 24 03/28/2024 LIPID PANEL LDL chol calc ([facility]) 119 mg/dL 0-99 above high normal Not Available [facility] ([facility]) [address] [place], [address], 03/28/2024 05:36:42 03/27/20 24 03/28/2024 LIPID PANEL LDL calc comment: TIPPLE ENGINEER Not Available [facility] ([facility]) [address] [place], [address], 03/28/2024 05:36:42 08/09/19 25 08/05/2024 MAMMO , diagn ostic , digit al, bilat eral No observ ation record ed. [facility] [address] [place], [address], 08/15/2024 08:18:59 08/09/19 25 08/05/2024 US, ruthy riggs No observ ation record ed. [email or web address] [facility] [address] [facility] [place], [address], 08/11/2024 14:02:05 Result Notes None recorded. Problems Name Problem SNOMED Code Status Onset Date Resolution Date Notes Provider Name and Address Organization Details Recorded Time Hypertriglycer idemia 838576940 Active 2023 Chris Smalls MD [address], [place], [address], [place] - [facility] 4 10:21:42 Migraine with aura 6069894 Active 2023 Chris Smalls MD [address], [place], [address], [place] [facility] 4 10:21:45 Fibromyalgia 576475884 Active 2023 Chris Smalls MD [address], [place], [address], [place] [facility] 4 10:21:46 Generalized anxiety disorder 61282299 Active 2024 Tomer Yang DO [address], [place], [address], [place] [facility] 5 09:00:22 Pain of multiple joints 20232229 Active 2024 Tomer Yang DO [address], [place], [address], [place] [facility] 5 09:00:44 Gastroesophage al reflux disease without esophagitis 841678859 Active 2024 Tomer Yang DO [address], [place], [address], [place] [facility] 5 09:04:58 [...] Name and Address Organization Details Recorded Time 394325 Augmentin medicatio n hives moderate Not available 03/10/2024 74375 2 RxNorm Mariaelena Oreilly-Orpedro ivan [place], [place] [...] Address Organization Details Last Updated DateTime 5 647304. 72 g 71 /min 98 % 98 % 18 /min 128/80 mm[Hg] Jaclyn Warren [place] - [facility] 5 14:37:22 Date Recorded Body height Body mass index (BMI) Body weight Body temperature Heart rate Oxygen saturation Oxygen saturation in Arterial blood by Pulse oximetry Respiratory rate Systolic And Diastolic Provider Name and Address Organization Details Last Updated DateTime 5 156.21 cm 46.8 kg/m2 344578. 48 g 98 [degF] 88 /min 97 % 97 % 18 /min 118/74 mm[Hg] Radha Tolentino [place] - [facility] 5 08:06:53 Date Recorded Body weight Body mass index (BMI) Body height Heart rate Oxygen saturation Oxygen saturation in Arterial blood by Pulse oximetry Body temperature Respiratory rate Systolic And Diastolic Provider Name and Address Organization Details Last Updated DateTime 4 070479. 13 g 45.5 kg/m2 156.21 cm 96 /min 98 % 98 % 98.4 [degF] 18 /min 118/80 mm[Hg] Mariaelena ivan [place] - [facility] 4 13:05:52 Date Recorded Body height Body mass index (BMI) Body weight Heart rate Body temperature Oxygen saturation Oxygen saturation in Arterial blood by Pulse oximetry Respiratory rate Systolic And Diastolic Provider Name and Address Organization Details Last Updated DateTime 4 156.21 cm 45.9 kg/m2 695733. 32 g 85 /min 98.2 [degF] 98 % 98 % 18 /min 110/72 mm[Hg] Mariaelena ivan [place] - [facility] 4 09:50:22 Date Recorded Body height Body mass index (BMI) Body weight Heart rate Body temperature Oxygen saturation Oxygen saturation in Arterial blood by Pulse oximetry Respiratory rate Systolic And Diastolic Provider Name and Address Organization Details Last Updated DateTime 4 156.21 cm 46.3 kg/m2 622004. 5 g 92 /min 98.4 [degF] 98 % 98 % 18 /min 112/78 mm[Hg] Mariaelena Madden [facility] - [facility] 4 09:44:16 Social History Question Answer Notes LastModified by Organizat ion Details LastModified Time Tobacco Smoking Status Current Every Day Smoker [facility] 03/10/2024 13:07:35 What Is Your Level Of Caffeine Consumption? Moderate Information not available 03/10/2024 What Was The Date Of Your Most Recent Tobacco Screening? 08/04/2024 [email or web address] Information not available 08/04/2024 What Is Your Current Pack Years? 10-19packyear s Information not available 08/04/2024 What Is Your Relationship Status? Information not available 03/10/2024 At What Age Did You Start Smoking Tobacco? 18 [email or web address] Information not available 08/04/2024 How Much Tobacco Do You Smoke? 0.5 PPD Information not available 03/10/2024 Has Tobacco Cessation Counseling Been Provided? Yes Information not available 03/10/2024 On What Date Was Tobacco Cessation Counseling Provided? 08/04/2024 Information not available 08/04/2024 How Many Years Have You Smoked Tobacco? 21 [email or web address] Information not available 08/04/2024 Do You Have [...] is your level of alcohol consumption? None [email or web address] Information not available 08/04/2024 What is your status? Not Information no t available 03/10/2024 Mental Status None recorded. Family History Relationship Description Onset Age of this Age Resolved Age Notes LastModified by Organization Details LastModified Time Father No current problems or disability [email or web address] Not available 05/16 14:29:06 Mother No current problems or disability Not available 05/16 14:29:06 Medical History Condition Response Hypertriglyceridemia Y Migraine Headaches Y Fibromyalgia Y Gynecological History Statement/Question Response Menses Monthly N Obstetrics History GPAL:G 0 P 0 0 0 0 Past Encounters Encounter ID Performer Location Encounter Start Date Encounter Closed Date Diagnosis/Indication Diagnosis SNOMED-CT Code Diagnosis ICD10 Code Diagnosis Note [id number] Chris Smalls MD [address] [place] [address] 03/10/2024 12:39:12 03/10/2024 13:45:51 Pain of multiple joints 81180690 M25.50 Body mass index 40+ - severely obese 718947048 Z68.42 Morbid obesity 196275194 E66.01 [id number] Chris Smalls MD [address] [address] 03/17/2024 09:29:50 03/17/2024 10:33:04 Hypertriglyceridemia 840056242 E78.1 Migraine with aura 13076 06 G43.109 Fibromyalgia 970403415 M 79.7 Generalize d anxiety disorder 39485845 F41.1 Long-term drug therapy 734899743 Z79.725 [id number] Chris Smalls MD [address] [address] 04/14/2024 09:37:00 04/14/2024 10:17:29 Fibromyalgia 909172517 M79.7 Pain of mu ltiple joints 17729309 M25.50 Mass of right breast 310 6752988 4133498 N63.10 [id number] Chris Smalls MD [address] [place] [address] 05/16/2024 14:15:54 05/16/2024 15:03:49 Fibromyalgia 597459208 M79.7 Hypertriglyceridemia 302 120509 E78.1 Migraine with aura 76975 06 G43.109 Pain of mu ltiple joints 10640484 M25.50 Generalize d anxiety disorder 84012932 F41.1 [id number] Tomer Yang DO [address] [place] [address] 08/04/2024 07:57:35 08/04/2024 08:45:25 Fibromyalgia 790497164 M79.7 Fibromyalg ia. Patient has had a failure of amitriptyl ine, allergic to gabapentin , and a failure of Cymbalta per her records. Patient will need to sign a records request for workup from her neurologis t for ongoing assessment . Patient will be given a renewal of her Lyrica at this point until we can validate her other failures. Hypertriglyceridemia 302 703544 E78.1 Hypertrigl yceridemia . Patient will continue the fenofibrat e at this point and at follow-up appointmen t will repeat labs. Last triglyceri rosibel were good so a trial off the medication may be indicated to see if her triglyceri rosibel return to greater than 500. Migraine with aura 52089 06 G43.109 Migraine headaches. Uncontroll ed. Patient [...] Body mass index 40+ - severely obese 944904174 E66.01 bmi--46.7 Morbid obesity 430393418 E66.01 Generalize d anxiety disorder 76409361 F41.1 Generalize d anxiety disorder. Controlled . Patient will continue the citalopram as currently prescribed . Pain of mu ltiple joints 46842604 M25.50 Joint pain. Patient was advised that tramadol will not be renewed. Patient was agreeable to not renewing the medication . Gastroesop hageal reflux disease without esophagitis 062530224 K21.9 Gastroesop hageal reflux disease without esophagiti [...] - [employer] Fernando Uriarte [id number] Jolynn Uriarte 04/13/2024 1 [address]TWON 6847 Fernando Uriarte [id number] Jolynn Uriarte 04/13/2024 2 [facility] Fernando Uriarte [id number] Jolynn Uriarte Notes Date Note Type Note [...] agreeable. Chris Smalls MD [address], [place], [address], [place] - [facility] 03/16/2024 07:55:25 03/17/2024 text/html [...] Pt. Chris Smalls MD [address], [place], [address], [facility] - [facility] 03/17/2024 17:07:52 04/14/2024 text/html Pt [...] Pt. Chris Smalls MD [address], [place], [address], [facility] - [facility] 04/14/2024 14:47:22 08/04/2024 text/html 39-year-old [...] states that she is currently taking Prilosec lyii-tvw-xtafdkg and taking 80 mg daily for relief of her symptoms. Patient is also currently taking it at bedtime. Tomer Yang DO [address], [place], [address], [place] - [facility] 08/04/2024 09:07:17 OBGyn Episode No OBEpisode recorded.
--- NOTE | 2024-11-15 10:00 | US_ITS ---
PROCEDURE: US TRANSVAGINAL CLINICAL INDICATION: PCOS/Amenorrhea COMPARISON: No exams were available for comparison FINDINGS: Transvaginal sonographic images of the pelvis were obtained. UTERUS: 7.1cm x 4.6 cmx 3.4cm with a combined endometrial thickness of 3.5mm. There is a small posterior fibroid measuring 0.43 cm x 0.43 cm x 0.58 cm LEFT OVARY: 4.2cmx2.3cmx3.1cm with a volume of 16ml. There are multiple small peripheral follicles. The largest measures 0.87 cm RIGHT OVARY: 4.0cmx 2.9 cmx2.3cm with a volume of 13.8ml. There are multiple small peripheral follicles. Both ovaries are seen and appear polycystic. Doppler flow to both ovaries are seen. There is trace fluid in the cul-de-sac. IMPRESSION: 1. Anteverted uterus normal in shape and size. The endometrium is thin measuring 3.5 mm. 2. Both ovaries are seen and appear polycystic. 3. There is trace fluid in the cul-de-sac. Dictated by: Jas Marie MD 11/15/2024 15:10 Jas Marie MD in [place] 11/15/2024 15:10
--- NOTE | 2024-11-15 10:30 | US_ITS ---
PROCEDURE INFORMATION: Exam: US Left Breast, Complete Exam date and time: 11/15/2024 10:06 AM Age: 39 years old Clinical indication: Pain, lump and swelling in the left breast. TECHNIQUE: Imaging protocol: Complete ultrasound of all four quadrants of the left breast and the retroareolar regions, including ultrasound of the axilla when performed. COMPARISON: No relevant prior studies available. FINDINGS: ULTRASOUND: Breast ultrasound findings: Ultrasound of the area of pain and palpable concern demonstrates a superficially located complex fluid collection within the skin of the left breast at 4 o'clock, 7 cm from the nipple that measures 3.7 cm in length and 0.6 cm in depth. This does not appear drainable. An infectious/inflammatory process is favored. In the left axilla, there is a lymph node with a thickened cortex consistent with a reactive lymph node that measures 3.3 cm. IMPRESSION: 1. Localized skin thickening with a complex fluid collection within the skin of the left breast at 4 o'clock, 7 cm from the nipple. Referral to a cafeteria manager or breast surgeon for possible surgical and medical management is recommended as an infectious/inflammatory etiology is favored. 2. Associated left reactive lymphadenopathy. 3. Following appropriate treatment, a follow-up ultrasound in 3 months is recommended to ensure resolution of these findings. ASSESSMENT: BI-RADS Category 3: Probably benign.
== END 2024-11-15 23:59 | disposition home or self-care (01) ==
LOC: RAD 09:28
PROVIDERS: PCP Family Medicine; Visit Provider Obstetrics & Gynecology
DX: N63.23 Unspecified lump in the left breast, lower outer quadrant (principal); E28.2 Polycystic ovarian syndrome; R59.1 Generalized enlarged lymph nodes; E66.9 Obesity, unspecified; E78.5 Hyperlipidemia, unspecified; E28.39 Other primary ovarian failure; Z72.0 Tobacco use; Z83.3 Family history of diabetes mellitus
CPT/HCPCS: 76641; 76830

== ENCOUNTER 2024-12-20 10:08 | Outpatient (CLI) | payer OTHER, SELFPAY ==
[2024-12-20 07:25] VITALS: BMI 46.0
--- OUTSIDE RECORDS SUMMARY | 2024-12-20 10:29 | XMS_ITS | Clinical Summary ---
Author Organization [facility] Address [address] [place] [address] Phone Care Team Providers Care Chemical Engineering Technician Name Role Phone Unavailable Primary Care Provider [...] AM EDT Incomplete: Need additional imaging evaluation ([id number]) ASSESSMENT TEXT: Boil cyst is likely what [...] next breast imaging, in accordance with the [employer] and the Society of [...] N63.10-Unspecified lump in the right breast, unspecified [id number] COMPARISON STUDIES: Compared with prior studies the [...] N63.10-Unspecified lump in the right breast, unspecified [id number] COMPARISON STUDIES: Compared with prior studies the most recent being No Qualifying Comparisons Found TISSUE DENSITY: The breasts are almost entirely fatty. FINDINGS: Left breast is unremarkable. Corresponding to palpableabnormality is a oval-shaped mass which is fat density centrally with thin rim ofcalcification consistent with an oil cyst. IMPRESSION: Incomplete: Need additional imaging evaluation ([id number]) ASSESSMENT TEXT: Boil cyst is likely what [...] next breast imaging, in accordance with the [employer] and the Society of Breast [...]
[2024-12-20 10:53] LABS: Hematocrit 42.9 % (37.0-47.0); Hemoglobin 14.7 g/dL (12.2-16.2); Mean Corpuscular HGB Conc 34.3 g/dL (31.8-35.4); Mean Corpuscular Hemoglobin 33.0 pg (27.0-31.2); Mean Corpuscular Volume 96.2 fl (81-99); Platelet Count 285 K/mm3 (142-424); Red Blood Count 4.46 M/mm3 (4.20-5.40); White Blood Count 9.1 K/mm3 (4.8-10.8)
[2024-12-20 11:33] LABS: Anion Gap 16.2 mEq/L (5-15); Blood Urea Nitrogen 15 mg/dl (7-17); Calcium 9.6 mg/dl (8.4-10.2); Carbon Dioxide 23 mmol/L (22.0-30.0); Chloride 105 mmol/L (98-107); Creatinine Clearance Estimated 66 mL/min (50-200); Creatinine,Serum 0.90 mg/dl (0.52-1.04); Estimated Glomerular Filt Rate 69 ml/min (>60); GFR (African American) 84 ML/MIN (>60); Glucose 104 mg/dl (74-100); Potassium 4.2 mmoL/L (3.5-5.1); Sodium 140 mmol/L (136-145)
[2024-12-20 11:50] LABS: Urine Pregnancy, HCG Qual. Negative (Negative)
[2024-12-20 12:08] LABS: Total Cells Counted 100
[2024-12-20 12:09] LABS: RBC Morphology Normal
== END 2024-12-20 23:59 | disposition home or self-care (01) ==
LOC: PREOP 10:08
PROVIDERS: PCP Family Medicine; Visit Provider Surgery
DX: Z01.812 Encounter for preprocedural laboratory examination (principal)
CPT/HCPCS: 80048; 81025; 85007; 85014; 85018; 85048; 85049

== ENCOUNTER 2024-12-28 06:00 | Day surgery (SDC) | payer OTHER, SELFPAY ==
[2024-12-20 11:45] VITALS: BMI 46.0
[2024-12-28] VITALS (9 sets, daily range): BP systolic 102–138; BP diastolic 53–85; PULSE 61–90; RESP 14–18; TEMP 36.1–36.6; O2SAT 92–98
[2024-12-28] MEDS: 0.9 % SODIUM CHLORIDE 1000ML 1,000 ML 25 ML IV (06:20)
[2024-12-28 06:26] LABS: Urine Pregnancy, HCG Qual. Negative (Negative)
[2024-12-28 06:52] LABS: POC Glucose,Bedside 129 gm/dL (70-110)
--- NOTE | 2024-12-28 07:01 | P.PNANES_ITS ---
[facility] Disclaimer: The information contained in this section may have been updated after the patient was seen, as this information can be updated by other users. Medical History Murmur Thickening of skin of breast Fibromyalgia Acid reflux PCOS (polycystic ovarian syndrome) Migraines Surgical History History of ankle surgery Family History Father Cancer Asthma Heart murmur Mother Diabetes Heart attack Other Coronary artery disease Social History Smoking Status: Current every day smoker tobacco type: cigarettes packs per day: 1 alcohol intake: never substance use type: denies use current occupational status: other Travel in the last 8 weeks?: None Have you lived/traveled outside [place] in past 30 days?: No Contact w/someone who lives/traveled outside US past 30 days?: No Exposure to someone with infectious disease in past 14 days?: No Do you have a fever (greater than 100.4 F or 38 C)?: No Have you tested positive for COVID-19?: No Exposed to someone with COVID-19 in past 14 days?: No Do you have a sore throat?: No Do you have a cough?: No Do you have any weakness?: No Do you have any diarrhea?: No Are you experiencing any unusual bleeding?: No Do you have any muscle aches/pain?: No Do you have any abdominal pain?: No Are you experiencing loss of taste or smell?: No [facility] Anesthesia Checklist Patient Identification Patient Identification: Arm Band and Family Structural Data Admitted From: Home Planned Operative Procedure/s: Excison lesion Left Breast Consent for Planned Operative Procedure(s) Verified: Yes Verified Documents: Surgical Consent NPO Status Verified Time NPO: 00:00 Additional verifications Patient : No Anesthesia Reactions: No Hx Blood Transfusions: No Blood Transfusion Reaction: No Cephalosporin Allergy: Yes Previous Colonoscopy: No Airway Assessment Mallampati Score:: Class II C-Spine Mobility Assessed: Yes TMJ Mobility Assessed: Yes Dentition: Good Dentition Neurological Assessment Level of Consciousness: Awake, Alert, Appropriate and Follows Commands Hx Seizures: No Numbness or tingling in extremities: No Anesthesia Plan Anesthesia Risk discussed: Yes ASA Class: II Anesthesia Type: General Preoperative Comments Pre-Operative Comments: Murmur. NIDDM. Acid reflux.
[2024-12-28] MEDS: CLINDAMYCIN PHOSPHATE/D5W 900 MG/50 ML PIGGYBACK 100 MG IV (07:33)
[2024-12-28] MEDS: LIDOCAINE 1% 20ML MDV 20 ML (07:33)
--- NOTE | 2024-12-28 07:51 | EXP.OP.NOTE ---
Date of procedure: 12/28/24 Pre-op Diagnosis:: Left breast hidradenitis Post-op Diagnosis:: Same Procedure performed:: Excision of left breast lesion (hidradenitis) Surgeon:: Gallo Castellano MD SHREDDED FILLER CUTTER OPERATOR:: Ted Pena Anesthesia: local and LMA Estimated blood loss (mL): 5 Operative findings:: Lesion excised in toto Operative note:: After informed consent was obtained the patient was taken to the operating room and placed in the supine position. General anesthesia with laryngeal mask airway was achieved. Her left breast was prepped and draped in a sterile fashion. After infiltration with local anesthetic an elliptical incision was made around the palpable lesion. A combination of sharp dissection and electrocautery was utilized to transect through the deeper subcutaneous tissue. The lesion was excised in toto and passed off for pathologic evaluation. Electrocautery was utilized to achieve hemostasis. Skin was reapproximated with interrupted 6-0 nylon in a mattress fashion to facilitate hemostasis. Dressings were applied and the patient was transferred to recovery in stable condition after removal of her laryngeal mask airway. Condition: stable Disposition: PACU Specimens:: Left breast lesion (hidradenitis) Complications:: No immediate
--- NOTE | 2024-12-28 08:02 | P.PNANES_ITS ---
[facility] Anesthesia Record Part I Anesthesia Record I Intake, IV Amount: 500 Hydration: Adequate Estimated blood loss (mL): 3 Urine output (mL): 0 Blood Products used (#): none Blood Pressure: 138/80 SaO2: 92 Pulse Rate: 90 Airway Patency: Patent Respiratory Rate: 14 Temperature: 97.3 F Patient is:: Drowsy and Stable Stable to PACU at:: 07:59
[2024-12-28 08:11] LABS: POC Glucose,Bedside 133 gm/dL (70-110)
[2024-12-28] MEDS: MORPHINE 2MG/ML SYRINGE 2 MG IV (08:11)
--- NOTE | 2024-12-28 13:13 | EXP.ANES.II ---
[facility] Anesthesia Record Part II Anesthesia Record Part II Discharge Time: 08:29 Destination: Surgical Day Care (OP Surgery) PACU nurse assessment reviewed?: Yes Patient Condition:: Good Anesthesia Complications:: None Swallowing reflex intact?: Yes Airway Patency: Patent Cyanosis?: No Blood Pressure: 106/53 SaO2: 96 Respiratory Rate: 16 Pulse Rate: 76 Temperature: 97.9 F Mental Status: Alert & Oriented Pain level:: 0 Nausea and/or vomitting:: None Intake, IV Amount: 0 Hydration: Adequate
== END 2024-12-28 09:16 | disposition home or self-care (01) ==
PROVIDERS: PCP Family Medicine; Visit Provider Surgery
PROC: (CPT 19120; principal; 2024-12-28 07:30)
DX: L73.2 Hidradenitis suppurativa (principal); K21.9 Gastro-esophageal reflux disease without esophagitis; M79.7 Fibromyalgia; E28.2 Polycystic ovarian syndrome; F17.210 Nicotine dependence, cigarettes, uncomplicated; Z88.1 Allergy status to other antibiotic agents; Z91.040 Latex allergy status; Z91.011 Allergy to milk products; Z79.84 Long term (current) use of oral hypoglycemic drugs; Z79.899 Other long term (current) drug therapy
CPT/HCPCS: 19120; 81025; 82962; 96374; J0736; J1100; J2003; J2250; J2270; J2405; J2704; J3010; J7030